=== PATIENT | female | born 1960 | race Caucasian/White ===

== ENCOUNTER 2017-01-16 12:18 | Emergency (ER) | payer BC, OTHER ==
[2017-01-16] MEDS ORDERED: EYE DROPS (12:28)
[2017-01-16] MEDS ORDERED: CYCLOBENZAPRINE10 M1 PO (14:51)
[2017-01-16] MEDS ORDERED: IBUPROFEN600 M1 PO (14:51)
[2017-01-16] MEDS ORDERED: PERCOCET 5-3251 EACH PO (14:51)
== END 2017-01-16 15:14 ==
LOC: EDMED 12:18
DX: S39.012A Strain of muscle, fascia and tendon of lower back, initial encounter (principal); H40.9 Unspecified glaucoma; Z98.890 Other specified postprocedural states; X58.XXXA Exposure to other specified factors, initial encounter
CPT/HCPCS: J1170; J1885